=== PATIENT | male | born 1970 | race African-American/Black ===

== ENCOUNTER 2016-12-28 08:16 | Inpatient (IN) | payer OTHER ==
[2016-12-28 10:37] VITALS: BMI 35.4
--- NOTE | 2016-12-28 13:27 | HP ---
CIWA Score - CIWA Score Nausea/Vomitin-No Nausea/No Vomiting Muscle Tremors: 4-Moderate,w/Arms Extend Anxiety: 3 Agitation: 3 Paroxysmal Sweats: 3 Orientation: 0-Oriented Tacttile Disturbances: 0-None Auditory Disturbances: 0-None Visual Disturbances: 0-None Headache: 0-None Present CIWA-Ar Total Score: 13 Admission ROS BHS - HPI Chief Complaint: I am here to detox. Allergies/Adverse Reactions: Allergies Allergy/AdvReac Type Severity Reaction Status Date / Time No Known Allergies Allergy Verified 12/28/16 11:05 History of Present Illness: pt is a 46yr old male with a history of alcohol and cocaine dependence seeking detox for treatment. Exam Limitations: No Limitations - Ebola screening Have you traveled outside of the country in the last 21 days: No Have you had contact with anyone from an Ebola affected area: No Have you been sick,other than usual withdrawal symptoms: No Do you have a fever: No - Review of Systems Constitutional: No Symptoms Reported EENT: reports: No Symptoms Reported Respiratory: reports: No Symptoms reported Cardiac: reports: No Symptoms Reported GI: reports: No Symptoms Reported : reports: No Symptoms Reported Musculoskeletal: reports: No Symptoms Reported Integumentary: reports: Sweating Neuro: reports: Tingling, Tremors Endocrine: reports: Excessive Sweating, Flushing, Intolerance to Heat Hematology: reports: No Symptoms Reported Psychiatric: reports: No Sypmtoms Reported, Judgement Intact, Mood/Affect Appropiate, Orientated x3, Agitated, Anxious Other Systems: Reviewed and Negative Patient History - Patient Medical History Hx Anemia: No Hx Asthma: No Hx Chronic Obstructive Pulmonary Disease (COPD): No Hx Cancer: No Hx Cardiac Disorders: No Hx Congestive Heart Failure: No Hx Hypertension: No Hx Hypercholesterolemia: No Hx Pacemaker: No HX Cerebrovascular Accident: No Hx Seizures: No Hx Diabetes: No Hx Gastrointestinal Disorders: No Hx Liver Disease: No Hx Genitourinary Disorders: No Hx Sexually Transmitted Disorders: Yes (syphilis) Hx Renal Disease (ESRD): No Hx Thyroid Disease: No Hx Human Immunodeficiency Virus (HIV): No (NEGATIVE HX) Hx Hepatitis C: No (negative) Hx Depression: No Hx Suicide Attempt: No (denies) Hx Bipolar Disorder: No Hx Schizophrenia: No - Patient Surgical History Past Surgical History: No Hx Neurologic Surgery: No Hx Cataract Extraction: No Hx Cardiac Surgery: No Hx Lung Surgery: No Hx Breast Surgery: No Hx Breast Biopsy: No Hx Abdominal Surgery: No Hx Appendectomy: No Hx Cholecystectomy: No Hx Genitourinary Surgery: No Hx Section: No Other Surgical History: RT ACHILLES REPAIR-IN 1994 Anesthesia Reaction: No - PPD History Previous Implant?: Yes Documented Results: Positive w/o proof Results: CXR TBD PPD to be Administered?: No - Reproductive History Patient is a Female of Child Bearing Age (11 -55 yrs old): No - Smoking Cessation Smoking history: Current every day smoker Have you smoked in the past 12 months: Yes Aproximately how many cigarettes per day: 10 Hx Chewing Tobacco Use: No Initiated information on smoking cessation: Yes 'Breaking Loose' booklet given: 12/28/16 - Substance & Tx. History Hx Alcohol Use: Yes Hx Substance Use: Yes Substance Use Type: Alcohol, Cocaine Hx Substance Use Treatment: Yes (last detox [facility] 3 weeks ago. ) - Substances Abused Crack Route: Smoking Frequency: Daily Amount used: $200 Age of first use: 24 Date of Last Use: 12/27/16 Alcohol-beer/vodka Route: Oral Frequency: Daily Amount used: 2-6 pks./1 pt. Age of first use: 20 Date of Last Use: 12/28/16 Family Disease History - Family Disease History Family Disease History: Diabetes: Father, Mother (HTN), Other: Mother Admission Physical Exam BHS - Vital Signs Vital Signs: Vital Signs - 24 hr 12/28/16 10:33 Temperature 96.9 F L Pulse Rate 90 Respiratory 18 Rate Blood Pressure 126/78 - Physical General Appearance: Yes: Appropriately Dressed, Moderate Distress, Sweating, Anxious HEENTM: Yes: Normal Voice Respiratory: Yes: Lungs Clear, Normal Breath Sounds, No Respiratory Distress Neck: Yes: No masses,lesions,Nodules Breast: Yes: Within Normal Limits Cardiology: Yes: Regular Rhythm, Regular Rate, S1, S2 Genitourinary: Yes: Within Normal Limits Back: Yes: Normal Inspection Musculoskeletal: Yes: full range of Motion Extremities: Yes: Normal Capillary Refill Neurological: Yes: Fully Oriented, Alert, Normal Response Integumentary: Yes: Normal Color, Diaphoresis Lymphatic: Yes: Within Normal Limits - Diagnostic (1) Alcohol dependence with uncomplicated withdrawal Current Visit: Yes Status: Chronic (2) Cocaine dependence, uncomplicated Current Visit: Yes Status: Chronic (3) Nicotine dependence Current Visit: Yes Status: Chronic Qualifiers: Nicotine product type: cigarettes Substance use status: uncomplicated Qualified Code(s): F17.210 - Nicotine dependence, cigarettes, uncomplicated Cleared for Admission [facility] - Detox or Rehab [facility] Level of Care: Medically Managed Detox Regimen/Protocol: Librium BHS Breath Alcohol Content Breath Alcohol Content: 0 Urine Drug Screen - Results Drug Screen Negative: No Urine Drug Screen Results: THC-Marijuana, SOM-Cocaine
[2016-12-28] MEDS ORDERED: ACETAMINOPHEN 325 MG TABLET (FP) PO PRN (13:29)
[2016-12-28] MEDS ORDERED: MAG HYDROX/AL HYDROX/SIMETH 30 ML UNIT-DOSE CUP PO PRN (13:29)
[2016-12-28] MEDS ORDERED: diphenhydrAMINE HCL 50 MG CAPSULE PO PRN (13:29)
[2016-12-28] MEDS ORDERED: hydrOXYzine PAMOATE 50 MG CAPSULE (FP) PO PRN (13:29)
[2016-12-28] MEDS ORDERED: IBUPROFEN 400 MG TABLET (FP) PO PRN (13:29)
[2016-12-28] MEDS ORDERED: P-EPHED 60MG/TRIPROLIDI 2.5MG TABLET PO PRN (13:29)
[2016-12-28] MEDS ORDERED: guaiFENesin/D-METHORPHAN HB 10 ML UNIT-DOSE CUPS PO PRN (13:29)
[2016-12-28] MEDS ORDERED: MAGNESIUM HYDROX 2400MG/30ML ORAL SUSPENSION 30 ML CUP PO PRN (13:29)
[2016-12-28] MEDS ORDERED: MAGNESIUM CITRATE 300 ML BOTTLE PO PRN (13:29)
[2016-12-28] MEDS ORDERED: LOPERAMIDE HCL 2 MG CAPSULE PO PRN (13:29)
[2016-12-28] MEDS ORDERED: MENTHOL/PHENOL 1 EACH UD MM PRN (13:29)
[2016-12-28] MEDS ORDERED: chlordiazePOXIDE HCL 25 MG CAPSULE PO ONE (14:00)
[2016-12-28 14:48] LABS: HIV 1 & 2 AB NEGATIVE; HIV 1 AGp24 NEGATIVE
[2016-12-28 17:41] LABS: URINE APPEARANCE CLEAR; URINE BILIRUBIN NEGATIVE (NEGATIVE); URINE BLOOD NEGATIVE (NEGATIVE); URINE COLOR AMBER; URINE GLUCOSE (UA) 1+ (NEGATIVE); URINE KETONE NEGATIVE (NEGATIVE); URINE LEUK ESTERASE NEGATIVE (NEGATIVE); URINE NITRITE NEGATIVE (NEGATIVE); URINE UROBILINOGEN 4.0 E.U/dl E.U./dl (0.2-1.0)
[2016-12-28 17:42] LABS: URINE PROTEIN 2+ (NEGATIVE)
[2016-12-28 17:53] LABS: URINE HYALINE CAST 1 /lpf; URINE MUCUS MANY; URINE RBC 1 /hpf (0-3); URINE WBC 3 /hpf (3-5)
[2016-12-28] MEDS: chlordiazePOXIDE HCL 25 MG CAPSULE PO SCH ×2 (18:22→22:03)
[2016-12-28] MEDS: chlordiazePOXIDE HCL 25 MG CAPSULE PO PRN (20:14)
[2016-12-28] MEDS: THIAMINE HCL 100 MG TABLET (FP) PO SCH (22:03)
[2016-12-29] MEDS: chlordiazePOXIDE HCL 25 MG CAPSULE PO SCH ×4 (05:56→22:47)
[2016-12-29 09:50] LABS: MCH 30.3 pg (25.7-33.7); MCHC 33.5 g/dl (32.0-35.9); MEAN CELL VOLUME 90.6 fl (80-96); MEAN PLT VOLUME 8.7 fl (7.5-11.1); PLATELET COUNT 286 K/MM3 (134-434); RDW 14.3 % (11.9-15.9); WHITE BLOOD COUNT 6.8 K/mm3 (4.0-10.0)
[2016-12-29] MEDS: PRENATAL VITAMINS W/ FOLIC ACID TABLET (FP) PO SCH (10:23)
[2016-12-29] MEDS: NICOTINE 21 MG/24 HOURS TOPICAL PATCH TD SCH (10:23)
[2016-12-29] MEDS: NICOTINE POLACRILEX 4 MG GUM BC PRN (10:24)
--- NOTE | 2016-12-29 11:26 | PN ---
[facility] CIWA - CIWA Score Nausea/Vomitin-No Nausea/No Vomiting Muscle Tremors: 4-Moderate,w/Arms Extend Anxiety: 4-Mod. Anxious/Guarded Agitation: 4-Moderately Restless Paroxysmal Sweats: 1-Minimal Palms Moist Orientation: 0-Oriented Tacttile Disturbances: 3-Moderate Itch/Numb/Burn Auditory Disturbances: 0-None Visual Disturbances: 0-None Headache: 0-None Present CIWA-Ar Total Score: 16 BHS Progress Note (SOAP) Subjective: ANXIETY,SWEATS,FATIGUE. Objective: 12/29/16 11:25 Vital Signs Temperature 97.0 F L 12/29/16 09:05 Pulse Rate 72 12/29/16 09:05 Respiratory Rate 18 12/29/16 09:05 Blood Pressure 131/82 12/29/16 09:05 O2 Sat by Pulse Oximetry (%) Laboratory Last Values WBC 6.8 K/mm3 (4.0-10.0) 12/29/16 06:00 RBC 5.05 M/mm3 (4.00-5.60) 12/29/16 06:00 Hgb 15.3 GM/dL (11.7-16.9) 12/29/16 06:00 Hct 45.7 % (35.4-49) 12/29/16 06:00 MCV 90.6 fl (80-96) 12/29/16 06:00 MCHC 33.5 g/dl (32.0-35.9) 12/29/16 06:00 RDW 14.3 % (11.9-15.9) 12/29/16 06:00 Plt Count 286 K/MM3 (134-434) 12/29/16 06:00 MPV 8.7 fl (7.5-11.1) 12/29/16 06:00 Urine Color Carrie 12/28/16 14:00 Urine Appearance Clear 12/28/16 14:00 Urine pH 5.0 (5.0-8.0) 12/28/16 14:00 Ur Specific [place] >= 1.030 (1.005-1.025) H 12/28/16 14:00 Urine Protein 2+ (NEGATIVE) H 12/28/16 14:00 Urine Glucose (UA) 1+ (NEGATIVE) H 12/28/16 14:00 Urine Ketones Negative (NEGATIVE) 12/28/16 14:00 Urine Blood Negative (NEGATIVE) 12/28/16 14:00 Urine Nitrite Negative (NEGATIVE) 12/28/16 14:00 Urine Bilirubin Negative (NEGATIVE) 12/28/16 14:00 Urine Urobilinogen 4.0 e.u/dl E.U./dl (0.2-1.0) 12/28/16 14:00 Ur Leukocyte Esterase Negative (NEGATIVE) 12/28/16 14:00 Urine RBC 1 /hpf (0-3) 12/28/16 14:00 Urine WBC 3 /hpf (3-5) 12/28/16 14:00 Ur Epithelial Cells Rare /hpf (FEW) 12/28/16 14:00 Hyaline Casts 1 /lpf 12/28/16 14:00 Urine Mucus Many 12/28/16 14:00 HIV 1&2 Antibody Screen Negative 12/28/16 11:10 HIV P24 Antigen Negative 12/28/16 11:10 Assessment: 12/29/16 11:25 WITHDRAWAL SX Plan: CONTINUE DETOX
--- NOTE | 2016-12-29 12:42 | EKG ---
Test Reason : Blood Pressure : / mmHG Vent. Rate : 085 BPM Atrial Rate : 085 BPM P-R Int : 136 ms QRS Dur : 068 ms QT Int : 346 ms P-R-T Axes : 043 024 018 degrees QTc Int : 411 ms NORMAL SINUS RHYTHM NORMAL ECG NO PREVIOUS ECGS AVAILABLE Confirmed by ARIAN LOPEZ MD ([id number]) on 12/29/2016 12:42:00 PM Referred By: Confirmed By:ARIAN LOPEZ MD
[2016-12-29 13:13] LABS: ALBUMIN 3.9 g/dl (3.4-5.0); ALK PHOS 99 U/L (45-117); ANION GAP 13 (8-16); BILIRUBIN,TOTAL 0.9 mg/dL (0.2-1.0); CALCIUM 8.8 mg/dL (8.5-10.1); CO2 23 mmol/L (21-32); CREATININE 1.3 mg/dL (0.7-1.3); GLUCOSE,RANDOM 183 mg/dL (74-106); SGOT/AST 22 U/L (15-37); SGPT/ALT 35 U/L (12-78); TOT PROT 7.5 g/dl (6.4-8.2)
[2016-12-29] MEDS: THIAMINE HCL 100 MG TABLET (FP) PO SCH (22:48)
[2016-12-30] MEDS: chlordiazePOXIDE HCL 25 MG CAPSULE PO SCH ×2 (06:05→10:16)
[2016-12-30] MEDS: PRENATAL VITAMINS W/ FOLIC ACID TABLET (FP) PO SCH (10:16)
[2016-12-30] MEDS: NICOTINE 21 MG/24 HOURS TOPICAL PATCH TD SCH (10:16)
--- NOTE | 2016-12-30 10:17 | PN ---
[facility] CIWA - CIWA Score Nausea/Vomitin-No Nausea/No Vomiting Muscle Tremors: 4-Moderate,w/Arms Extend Anxiety: 4-Mod. Anxious/Guarded Agitation: 4-Moderately Restless Paroxysmal Sweats: 1-Minimal Palms Moist Orientation: 0-Oriented Tacttile Disturbances: 3-Moderate Itch/Numb/Burn Auditory Disturbances: 0-None Visual Disturbances: 0-None Headache: 0-None Present CIWA-Ar Total Score: 16 S Progress Note (SOAP) Subjective: ANXIETY,SWEATS,INTERMITTENT SLEEP Objective: 12/30/16 10:16 Vital Signs Temperature 96.7 F L 12/30/16 09:47 Pulse Rate 80 12/30/16 09:47 Respiratory Rate 18 12/30/16 09:47 Blood Pressure 137/86 12/30/16 09:47 O2 Sat by Pulse Oximetry (%) Laboratory Last Values WBC 6.8 K/mm3 (4.0-10.0) 12/29/16 06:00 RBC 5.05 M/mm3 (4.00-5.60) 12/29/16 06:00 Hgb 15.3 GM/dL (11.7-16.9) 12/29/16 06:00 Hct 45.7 % (35.4-49) 12/29/16 06:00 MCV 90.6 fl (80-96) 12/29/16 06:00 MCHC 33.5 g/dl (32.0-35.9) 12/29/16 06:00 RDW 14.3 % (11.9-15.9) 12/29/16 06:00 Plt Count 286 K/MM3 (134-434) 12/29/16 06:00 MPV 8.7 fl (7.5-11.1) 12/29/16 06:00 Sodium 139 mmol/L (136-145) 12/29/16 06:00 Potassium 4.0 mmol/L (3.5-5.1) 12/29/16 06:00 Chloride 103 mmol/L (98-107) 12/29/16 06:00 Carbon Dioxide 23 mmol/L (21-32) 12/29/16 06:00 Anion Gap 13 (8-16) 12/29/16 06:00 BUN 24 mg/dL (7-18) H D 12/29/16 06:00 Creatinine 1.3 mg/dL (0.7-1.3) 12/29/16 06:00 Creat Clearance w eGFR 59.17 (>60) 12/29/16 06:00 Random Glucose 183 mg/dL (74-106) H D 12/29/16 06:00 Calcium 8.8 mg/dL (8.5-10.1) 12/29/16 06:00 Total Bilirubin 0.9 mg/dL (0.2-1.0) 12/29/16 06:00 AST 22 U/L (15-37) 12/29/16 06:00 ALT 35 U/L (12-78) 12/29/16 06:00 Alkaline Phosphatase 99 U/L (45-117) 12/29/16 06:00 Total Protein 7.5 g/dl (6.4-8.2) 12/29/16 06:00 Albumin 3.9 g/dl (3.4-5.0) 12/29/16 06:00 Urine Color Carrie 12/28/16 14:00 Urine Appearance Clear 12/28/16 14:00 Urine pH 5.0 (5.0-8.0) 12/28/16 14:00 Ur Specific [place] >= 1.030 (1.005-1.025) H 12/28/16 14:00 Urine Protein 2+ (NEGATIVE) H 12/28/16 14:00 Urine Glucose (UA) 1+ (NEGATIVE) H 12/28/16 14:00 Urine Ketones Negative (NEGATIVE) 12/28/16 14:00 Urine Blood Negative (NEGATIVE) 12/28/16 14:00 Urine Nitrite Negative (NEGATIVE) 12/28/16 14:00 Urine Bilirubin Negative (NEGATIVE) 12/28/16 14:00 Urine Urobilinogen 4.0 e.u/dl E.U./dl (0.2-1.0) 12/28/16 14:00 Ur Leukocyte Esterase Negative (NEGATIVE) 12/28/16 14:00 Urine RBC 1 /hpf (0-3) 12/28/16 14:00 Urine WBC 3 /hpf (3-5) 12/28/16 14:00 Ur Epithelial Cells Rare /hpf (FEW) 12/28/16 14:00 Hyaline Casts 1 /lpf 12/28/16 14:00 Urine Mucus Many 12/28/16 14:00 RPR Titer Nonreactive (NONREACTIVE) 12/29/16 06:00 HIV 1&2 Antibody Screen Negative 12/28/16 11:10 HIV P24 Antigen Negative 12/28/16 11:10 Assessment: 12/30/16 10:16 WITHDRAWAL SX Plan: CONTINUE DETOX
[2016-12-30] MEDS: chlordiazePOXIDE HCL 25 MG CAPSULE PO PRN (15:25)
[2016-12-30] MEDS: chlordiazePOXIDE 5 MG CAPSULE PO SCH ×2 (17:03→22:50)
[2016-12-30] MEDS: THIAMINE HCL 100 MG TABLET (FP) PO SCH (22:50)
[2016-12-31] MEDS: chlordiazePOXIDE 5 MG CAPSULE PO SCH ×2 (06:00→10:03)
[2016-12-31] MEDS: PRENATAL VITAMINS W/ FOLIC ACID TABLET (FP) PO SCH (10:02)
[2016-12-31] MEDS: NICOTINE 21 MG/24 HOURS TOPICAL PATCH TD SCH (10:03)
[2016-12-31] MEDS: NICOTINE POLACRILEX 4 MG GUM BC PRN (10:04)
[2016-12-31] MEDS: chlordiazePOXIDE HCL 10 MG CAPSULE PO SCH ×2 (17:12→22:08)
--- NOTE | 2016-12-31 18:04 | PN ---
BHS Progress Note (SOAP) Subjective: Tremors, Sweating. Objective: PT. A & O X 3. NO ACUTE DISTRESS. 12/31/16 18:02 Vital Signs Temperature 98.2 F 12/31/16 17:14 Pulse Rate 83 12/31/16 17:14 Respiratory Rate 18 12/31/16 17:14 Blood Pressure 118/74 12/31/16 17:14 O2 Sat by Pulse Oximetry (%) Laboratory Tests 12/28/16 12/28/16 12/29/16 11:10 14:00 06:00 WBC 6.8 RBC 5.05 Hgb 15.3 Hct 45.7 MCV 90.6 MCHC 33.5 RDW 14.3 Plt Count 286 MPV 8.7 Sodium Potassium Chloride Carbon Dioxide Anion Gap BUN Creatinine Creat Clearance w eGFR Random Glucose Calcium Total Bilirubin AST ALT Alkaline Phosphatase Total Protein Albumin Urine Color Carrie Urine Appearance Clear Urine pH 5.0 Ur Specific [place] >= 1.030 H Urine Protein 2+ H Urine Glucose (UA) 1+ H Urine Ketones Negative Urine Blood Negative Urine Nitrite Negative Urine Bilirubin Negative Urine Urobilinogen 4.0 e.u/dl Ur Leukocyte Esterase Negative Urine RBC 1 Urine WBC 3 Ur Epithelial Cells Rare Hyaline Casts 1 Urine Mucus Many RPR Titer HIV 1&2 Antibody Screen Negative HIV P24 Antigen Negative 12/29/16 12/29/16 06:00 06:00 WBC RBC Hgb Hct MCV MCHC RDW Plt Count MPV Sodium 139 Potassium 4.0 Chloride 103 Carbon Dioxide 23 Anion Gap 13 BUN 24 H D Creatinine 1.3 Creat Clearance w eGFR 59.17 Random Glucose 183 H D Calcium 8.8 Total Bilirubin 0.9 AST 22 ALT 35 Alkaline Phosphatase 99 Total Protein 7.5 Albumin 3.9 Urine Color Urine Appearance Urine pH Ur Specific [place] Urine Protein Urine Glucose (UA) Urine Ketones Urine Blood Urine Nitrite Urine Bilirubin Urine Urobilinogen Ur Leukocyte Esterase Urine RBC Urine WBC Ur Epithelial Cells Hyaline Casts Urine Mucus RPR Titer Nonreactive HIV 1&2 Antibody Screen HIV P24 Antigen LABS NOTED. Assessment: 12/31/16 18:03 WITHDRAWAL SYMPTOMS. Plan: CONTINUE DETOX. ADVISED PATIENT TO FOLLOW-UP WITH FLIGHT OPERATIONS MANAGER AFTER DISCHARGE FROM DETOX FOR GENERAL MEDICAL ASSESSMENT AND FOR ABNORMAL ADMISSION RENAL LAB (BUN, CREATININE, AND GFR) VALUES AND FOR ELEVATED ADMISSION RANDOM GLUCOSE LEVEL.
[2016-12-31] MEDS: THIAMINE HCL 100 MG TABLET (FP) PO SCH (22:07)
[2017-01-01] MEDS: chlordiazePOXIDE HCL 10 MG CAPSULE PO SCH (05:49)
[2017-01-01 06:28] VITALS: BP 120/85; PULSE 74; TEMP 98.1
--- NOTE | 2017-01-01 11:43 | DS ---
[facility] Detox Discharge Summary Admission Date: 12/28/16 Discharge Date: 01/01/17 - History Present History: Alcohol Dependence, Cocaine Dependence Pertinent Past History: Positive PPD Prerenal azotemia, acute: encouraged to drink lots of water Laboratory Tests 12/28/16 12/28/16 12/29/16 11:10 14:00 06:00 WBC 6.8 RBC 5.05 Hgb 15.3 Hct 45.7 MCV 90.6 MCHC 33.5 RDW 14.3 Plt Count 286 MPV 8.7 Sodium Potassium Chloride Carbon Dioxide Anion Gap BUN Creatinine Creat Clearance w eGFR Random Glucose Calcium Total Bilirubin AST ALT Alkaline Phosphatase Total Protein Albumin Urine Color Carrie Urine Appearance Clear Urine pH 5.0 Ur Specific [place] >= 1.030 H Urine Protein 2+ H Urine Glucose (UA) 1+ H Urine Ketones Negative Urine Blood Negative Urine Nitrite Negative Urine Bilirubin Negative Urine Urobilinogen 4.0 e.u/dl Ur Leukocyte Esterase Negative Urine RBC 1 Urine WBC 3 Ur Epithelial Cells Rare Hyaline Casts 1 Urine Mucus Many RPR Titer HIV 1&2 Antibody Screen Negative HIV P24 Antigen Negative 12/29/16 12/29/16 06:00 06:00 WBC RBC Hgb Hct MCV MCHC RDW Plt Count MPV Sodium 139 Potassium 4.0 Chloride 103 Carbon Dioxide 23 Anion Gap 13 BUN 24 H D Creatinine 1.3 Creat Clearance w eGFR 59.17 Random Glucose 183 H D Calcium 8.8 Total Bilirubin 0.9 AST 22 ALT 35 Alkaline Phosphatase 99 Total Protein 7.5 Albumin 3.9 Urine Color Urine Appearance Urine pH Ur Specific [place] Urine Protein Urine Glucose (UA) Urine Ketones Urine Blood Urine Nitrite Urine Bilirubin Urine Urobilinogen Ur Leukocyte Esterase Urine RBC Urine WBC Ur Epithelial Cells Hyaline Casts Urine Mucus RPR Titer Nonreactive HIV 1&2 Antibody Screen HIV P24 Antigen Labs noted: prerenal azotemia (encouraged to drink lots of water) - Physical Exam Results Vital Signs: Vital Signs Temperature 98.1 F 01/01/17 06:28 Pulse Rate 74 01/01/17 06:28 Respiratory Rate 18 01/01/17 06:28 Blood Pressure 120/85 01/01/17 06:28 O2 Sat by Pulse Oximetry (%) - Treatment Hospital Course: Detox Protocol Followed, Detoxed Safely, Responded well, Discharged Condition Good - Medication Discharge Medications: Ambulatory Orders NK [No Known Home Medication] 01/27/16 - Diagnosis (1) Alcohol dependence with uncomplicated withdrawal Status: Acute (2) Cocaine dependence, uncomplicated Status: Chronic (3) Nicotine dependence Status: Chronic Qualifiers: Nicotine product type: cigarettes Substance use status: uncomplicated Qualified Code(s): F17.210 - Nicotine dependence, cigarettes, uncomplicated (4) PPD positive Status: Chronic - AMA Did Patient Leave Against Medical Advice: No
== END 2017-01-01 08:38 | disposition home or self-care (01) | DRG 774 ==
LOC: YASAS 08:16 → Y3N 12:15
PROVIDERS: ADMIT Internal Medicine; ATTEND Internal Medicine
PROC: HZ2ZZZZ Detoxification Services for Substance Abuse Treatment (ICD-10-PCS; principal; 2016-12-28)
DX: F10.230 Alcohol dependence with withdrawal, uncomplicated (principal); F14.20 Cocaine dependence, uncomplicated; F17.210 Nicotine dependence, cigarettes, uncomplicated; R76.11 Nonspecific reaction to tuberculin skin test without active tuberculosis; Z87.438 Personal history of other diseases of male genital organs; Z59.0 Homelessness
CPT/HCPCS: 36415; 80053; 81003; 81015; 85027; 86593; 87389; 93005; 93010

== ENCOUNTER 2017-07-21 12:39 | Inpatient (IN) | payer OTHER ==
[2017-07-21 14:19] VITALS: BMI 35.1
--- NOTE | 2017-07-21 14:41 | HP ---
Admission [facility] Chief Complaint: requesting inpatient rehab from alcohol and cocaine Allergies/Adverse Reactions: Allergies Allergy/AdvReac Type Severity Reaction Status Date / Time No Known Allergies Allergy Verified 07/21/17 14:29 History of Present Illness: 46 yo m with h/o chornic alcoholism and cocaine dependence detoxed in retirement, has not had a a drink, last drink or cocaine use in January siince release 2 dasy ago requesting inaptient rehab. no h.o suicide attempts in [place] at this time Exam Limitations: No Limitations - Ebola screening Have you traveled outside of the country in the last 21 days: No Have you had contact with anyone from an Ebola affected area: No Have you been sick,other than usual withdrawal symptoms: No Do you have a fever: No - Review of Systems Constitutional: No Symptoms Reported EENT: reports: No Symptoms Reported Respiratory: reports: No Symptoms reported Cardiac: reports: No Symptoms Reported GI: reports: No Symptoms Reported : reports: No Symptoms Reported Musculoskeletal: reports: No Symptoms Reported Integumentary: reports: Rash (back of neck, requesting hyydrocortisone) Neuro: reports: No Symptoms reported Endocrine: reports: No Symptoms Reported Hematology: reports: No Symptoms Reported Psychiatric: reports: Judgement Intact, Mood/Affect Appropiate, Orientated x3, Anxious, Depressed Other Systems: Reviewed and Negative Patient History - Patient Medical History Hx Anemia: No Hx Asthma: No Hx Chronic Obstructive Pulmonary Disease (COPD): No Hx Cancer: No Hx Cardiac Disorders: No Hx Congestive Heart Failure: No Hx Hypertension: No Hx Hypercholesterolemia: No Hx Pacemaker: No HX Cerebrovascular Accident: No Hx Seizures: No Hx Dementia: No Hx Diabetes: No Hx Gastrointestinal Disorders: No Hx Liver Disease: No Hx Genitourinary Disorders: No Hx Sexually Transmitted Disorders: Yes (syphilis treated) Hx Renal Disease (ESRD): No Hx Thyroid Disease: No Hx Human Immunodeficiency Virus (HIV): No (NEGATIVE HX) Hx Hepatitis C: No (negative) Hx Depression: No Hx Suicide Attempt: No (denies) Hx Bipolar Disorder: No Hx Schizophrenia: No - Patient Surgical History Past Surgical History: No Hx Neurologic Surgery: No Hx Cataract Extraction: No Hx Cardiac Surgery: No Hx Lung Surgery: No Hx Breast Surgery: No Hx Breast Biopsy: No Hx Abdominal Surgery: No Hx Appendectomy: No Hx Cholecystectomy: No Hx Genitourinary Surgery: No Hx Section: No Other Surgical History: RT ACHILLES REPAIR-IN 1994 Anesthesia Reaction: No - PPD History Previous Implant?: Yes Documented Results: Positive w/proof Implanted On Prior [facility] Admission?: Yes Results: CXR TBD PPD to be Administered?: No - Reproductive History Patient is a Female of Child Bearing Age (11 -55 yrs old): No Patient : No - Smoking Cessation Smoking history: Current every day smoker Have you smoked in the past 12 months: Yes Aproximately how many cigarettes per day: 10 Hx Chewing Tobacco Use: No Initiated information on smoking cessation: No 'Breaking Loose' booklet given: 07/21/17 - Substance & Tx. History Hx Alcohol Use: Yes Hx Substance Use: Yes Substance Use Type: Alcohol, Cocaine Hx Substance Use Treatment: Yes (detoxed while incarceratted, no recent use) - Substances Abused Alcohol Route: Oral Frequency: Daily Amount used: 12 beers 12oz, 1 pint vodka Age of first use: 20 Date of Last Use: 02/13/17 Crack Route: Inhalation Frequency: Daily Amount used: $300/week Age of first use: 23 Date of Last Use: 02/13/17 Family Disease History - Family Disease History Family Disease History: Diabetes: Father, Mother (HTN), Other: Mother Admission Physical Exam [facility] - Vital Signs Vital Signs: Vital Signs - 24 hr 07/21/17 14:16 Temperature 98.1 F Pulse Rate 102 H Respiratory 20 Rate Blood Pressure 151/89 - Physical General Appearance: Yes: Within Normal Limits, No Apparent Distress, Nourished, Appropriately Dressed, Obese HEENTM: Yes: Within Normal Limits, EOMI, Hearing grossly Normal, Normal ENT Inspection, Normocephalic, Normal Voice, MAGNO, Pharynx Normal Respiratory: Yes: Within Normal Limits, Chest Non-Tender, Lungs Clear, Normal Breath Sounds, No Respiratory Distress, No Accessory Muscle Use Neck: Yes: Within Normal Limits, No masses,lesions,Nodules, Trachea in good position Breast: Yes: Breast Exam Deferred Cardiology: Yes: Within Normal Limits, Regular Rhythm, Regular Rate, S1, S2 Abdominal: Yes: Normal Bowel Sounds, Non Tender, Soft, Protuberent, Distended Genitourinary: Yes: Within Normal Limits Back: Yes: Within Normal Limits, Normal Inspection Musculoskeletal: Yes: Within Normal Limits, full range of Motion, Gait Steady, Pelvis Stable Extremities: Yes: Within Normal Limits, Normal Capillary Refill, Normal Inspection, Normal Range of Motion, Non-Tender Neurological: Yes: health nurse II-XII NML intact, Fully Oriented, Alert, Motor Strength 5/5, Normal Response, Depressed Affect Integumentary: Yes: Normal Color, Dry, Warm, Rash (back of neck from shaving) Lymphatic: Yes: Within Normal Limits - Diagnostic (1) Obesity Current Visit: Yes Status: Acute (2) Rash Current Visit: Yes Status: Acute (3) Alcohol dependence with uncomplicated withdrawal Current Visit: No Status: Acute (4) Cocaine dependence, uncomplicated Current Visit: No Status: Chronic (5) Nicotine dependence Current Visit: No Status: Chronic Qualifiers: Nicotine product type: cigarettes Substance use status: uncomplicated Qualified Code(s): F17.210 - Nicotine dependence, cigarettes, uncomplicated (6) PPD positive Current Visit: No Status: Chronic Cleared for Admission S - Detox or Rehab Detox Regimen/Protocol: Not Applicable S Breath Alcohol Content Breath Alcohol Content: 0 Urine Drug Screen - Results Drug Screen Negative: Yes Inpatient Rehab Admission - Initial Determination Are CD services needed?: Yes Free of communicable disease: Yes Not in need of hospitalization: Yes - Rehab Admission Criteria Previous failed treatment: Yes Patient is meeting Inpatient Rehab admission criteria:: Yes
[2017-07-21] MEDS ORDERED: guaiFENesin/D-METHORPHAN HB 10 ML UNIT-DOSE CUPS PO PRN (14:43)
[2017-07-21] MEDS ORDERED: ACETAMINOPHEN 325 MG TABLET (FP) PO PRN (14:43)
[2017-07-21] MEDS ORDERED: MAG HYDROX/AL HYDROX/SIMETH 30 ML UNIT-DOSE CUP PO PRN (14:43)
[2017-07-21] MEDS ORDERED: MAGNESIUM HYDROX 2400MG/30ML ORAL SUSPENSION 30 ML CUP PO PRN (14:43)
[2017-07-21] MEDS ORDERED: P-EPHED 60MG/TRIPROLIDI 2.5MG TABLET PO PRN (14:43)
[2017-07-21] MEDS ORDERED: MAGNESIUM CITRATE 300 ML BOTTLE PO PRN (14:43)
[2017-07-21] MEDS ORDERED: MENTHOL/PHENOL 1 EACH UD MM PRN (14:43)
[2017-07-21] MEDS ORDERED: LOPERAMIDE HCL 2 MG CAPSULE PO PRN (14:43)
[2017-07-21] MEDS ORDERED: IBUPROFEN 400 MG TABLET (FP) PO PRN (14:43)
[2017-07-21] MEDS ORDERED: hydrOXYzine PAMOATE 50 MG CAPSULE (FP) PO PRN (14:43)
[2017-07-21 20:58] LABS: URINE APPEARANCE CLEAR; URINE BILIRUBIN NEGATIVE (NEGATIVE); URINE BLOOD NEGATIVE (NEGATIVE); URINE COLOR YELLOW; URINE GLUCOSE (UA) 3+ (NEGATIVE); URINE KETONE NEGATIVE (NEGATIVE); URINE LEUK ESTERASE NEGATIVE (NEGATIVE); URINE NITRITE NEGATIVE (NEGATIVE); URINE PROTEIN NEGATIVE (NEGATIVE); URINE UROBILINOGEN NEGATIVE mg/dL (0.2-1.0)
[2017-07-21] MEDS: THIAMINE HCL 100 MG TABLET (FP) PO SCH (21:37)
[2017-07-22] MEDS: PRENATAL VITAMINS W/ FOLIC ACID TABLET (FP) PO SCH (10:19)
[2017-07-22] MEDS: HYDROCORTISONE 0.5% TOPICAL OINTMENT TUBE TP PRN (10:19)
[2017-07-22 11:07] LABS: ALBUMIN 3.9 g/dl (3.4-5.0); ANION GAP 10 (8-16); BILIRUBIN,TOTAL 0.4 mg/dL (0.2-1.0); BLOOD UREA NITROGEN 14 mg/dL (7-18); CALCIUM 9.2 mg/dL (8.5-10.1); CHLORIDE 102 mmol/L (98-107); CO2 24 mmol/L (21-32); GLUCOSE,RANDOM 295 mg/dL (74-106); POTASSIUM 4.6 mmol/L (3.5-5.1); SGPT/ALT 34 U/L (12-78); SODIUM 136 mmol/L (136-145)
[2017-07-22 11:08] LABS: HEMATOCRIT 44.7 % (35.4-49); MCH 29.2 pg (25.7-33.7); MCHC 33.5 g/dl (32.0-35.9); MEAN CELL VOLUME 86.9 fl (80-96); MEAN PLT VOLUME 8.5 fl (7.5-11.1); PLATELET COUNT 235 K/MM3 (134-434); RBC 5.14 M/mm3 (4.00-5.60); RDW 13.6 % (11.9-15.9); WHITE BLOOD COUNT 5.6 K/mm3 (4.0-10.0)
[2017-07-22 11:09] LABS: ALK PHOS 107 U/L (45-117); SGOT/AST 18 U/L (15-37); TOT PROT 7.3 g/dl (6.4-8.2)
--- NOTE | 2017-07-22 13:38 | EKG ---
Test Reason : Blood Pressure : / mmHG Vent. Rate : 075 BPM Atrial Rate : 075 BPM P-R Int : 152 ms QRS Dur : 078 ms QT Int : 348 ms P-R-T Axes : 039 013 -02 degrees QTc Int : 388 ms NORMAL SINUS RHYTHM MINIMAL VOLTAGE CRITERIA FOR LVH, MAY BE NORMAL VARIANT NONSPECIFIC ST ABNORMALITY ABNORMAL ECG WHEN COMPARED WITH ECG OF 28-DEC-2016 13:48, NO SIGNIFICANT CHANGE WAS FOUND Confirmed by LING RUEDA MD ([id number]) on 07/22/2017 1:37:39 PM Referred By: Confirmed By:LING RUEDA MD
[2017-07-22] MEDS: THIAMINE HCL 100 MG TABLET (FP) PO SCH (22:11)
[2017-07-23] MEDS: PRENATAL VITAMINS W/ FOLIC ACID TABLET (FP) PO SCH (09:58)
[2017-07-23] MEDS: THIAMINE HCL 100 MG TABLET (FP) PO SCH (21:31)
[2017-07-24] MEDS: PRENATAL VITAMINS W/ FOLIC ACID TABLET (FP) PO SCH (10:48)
--- NOTE | 2017-07-24 11:47 | HP ---
Psychiatrist Admission - Data Date of interview: 07/24/17 Admission source: [facility] Identifying data: This is the first 5N inpatient rehabilitation admission for this 46 year old single AA male father of 5, supported on PA, residing in the [place] with his g/f. Medical History: denies Psychiatric History: patient denies history of psychiaric treatment. Physical/Sexual Abuse/Trauma History: patient denies history of sexual, physical and verbal abuse. Additional Comment: Patient reports he just released from retirement (6 months). Vital Signs: Vital Signs - 24 hr 07/24/17 07/24/17 07/24/17 00:30 03:30 07:20 Temperature 98.1 F Pulse Rate 78 Respiratory 18 18 18 Rate Blood Pressure 130/84 Allergies/Adverse Reactions: Allergies Allergy/AdvReac Type Severity Reaction Status Date / Time No Known Allergies Allergy Verified 07/21/17 14:29 Date of last physical exam: 07/21/17 Concur with the findings of this exam: Yes - Substance Abuse/Tx History Hx Alcohol Use: Yes Hx Substance Use: Yes Substance Use Type: Alcohol (daily 12 oz beers, 1 pint of vodka, last use 01/30) , Cocaine (daily $300 last use01/30) Mental Status Exam - Mental Status Exam Alert and Oriented to: Time, Place, Person Cognitive Function: Good Patient Appearance: Well Groomed Mood: Hopeful Affect: Appropriate, Mood Congruent Patient Behavior: Appropriate, Cooperative Speech Pattern: Clear, Appropriate Voice Loudness: Normal Thought Process: Intact, Goal Oriented Thought Disorder: Not Present Hallucinations: Denies Suicidal Ideation: Denies Homicidal Ideation: Denies Insight/Judgement: Fair Sleep: Fair Appetite: Fair Muscle strength/Tone: Normal Psychiatric Findings - Problem List ([place] 1, 2,3) (1) Cocaine dependence Current Visit: Yes Status: Acute (2) Alcohol dependence Current Visit: Yes Status: Acute (3) Nicotine dependence Current Visit: No Status: Chronic Qualifiers: Nicotine product type: cigarettes Substance use status: uncomplicated Qualified Code(s): F17.210 - Nicotine dependence, cigarettes, uncomplicated - Initial Treatment Plan Initial Treatment Plan: will monitor progress as needed.
[2017-07-24] MEDS: COLLOIDAL OATMEAL 1 BAR EACH TP PRN (13:52)
[2017-07-24] MEDS: THIAMINE HCL 100 MG TABLET (FP) PO SCH (22:07)
[2017-07-25] MEDS: PRENATAL VITAMINS W/ FOLIC ACID TABLET (FP) PO SCH (10:13)
[2017-07-25] MEDS: INSULIN SLIDING SCALE (NOVOLOG) 1 VIAL SQ SCH (17:03)
[2017-07-25] MEDS: metFORMIN HCL 500 MG TABLET (FP) PO SCH (17:40)
[2017-07-25] MEDS: THIAMINE HCL 100 MG TABLET (FP) PO SCH (21:49)
[2017-07-26] MEDS: metFORMIN HCL 500 MG TABLET (FP) PO SCH ×2 (06:42→17:06)
[2017-07-26] MEDS: INSULIN SLIDING SCALE (NOVOLOG) 1 VIAL SQ SCH ×2 (06:42→17:08)
[2017-07-26] MEDS ORDERED: INSULIN (NOVOLOG) ASPART 100 UNITS/ML 10ML VIAL ONE ×2 (07:22→17:21)
[2017-07-26] MEDS: PRENATAL VITAMINS W/ FOLIC ACID TABLET (FP) PO SCH (10:02)
[2017-07-26] MEDS: THIAMINE HCL 100 MG TABLET (FP) PO SCH (22:11)
[2017-07-27] MEDS ORDERED: INSULIN (NOVOLOG) ASPART 100 UNITS/ML 10ML VIAL ONE ×2 (06:54→17:09)
[2017-07-27] MEDS: HYDROCORTISONE 0.5% TOPICAL OINTMENT TUBE TP PRN (06:54)
[2017-07-27] MEDS: INSULIN SLIDING SCALE (NOVOLOG) 1 VIAL SQ SCH ×2 (06:55→16:55)
[2017-07-27] MEDS: metFORMIN HCL 500 MG TABLET (FP) PO SCH ×2 (06:55→16:53)
[2017-07-27] MEDS: PRENATAL VITAMINS W/ FOLIC ACID TABLET (FP) PO SCH (10:41)
[2017-07-27] MEDS: THIAMINE HCL 100 MG TABLET (FP) PO SCH (21:49)
[2017-07-28] MEDS: metFORMIN HCL 500 MG TABLET (FP) PO SCH ×2 (07:10→17:09)
[2017-07-28] MEDS ORDERED: INSULIN (NOVOLOG) ASPART 100 UNITS/ML 10ML VIAL ONE ×2 (07:24→17:16)
[2017-07-28] MEDS: INSULIN SLIDING SCALE (NOVOLOG) 1 VIAL SQ SCH ×2 (07:29→17:10)
[2017-07-28] MEDS: PRENATAL VITAMINS W/ FOLIC ACID TABLET (FP) PO SCH (10:32)
[2017-07-28] MEDS: THIAMINE HCL 100 MG TABLET (FP) PO SCH (23:25)
[2017-07-29] MEDS: INSULIN SLIDING SCALE (NOVOLOG) 1 VIAL SQ SCH ×2 (07:39→16:47)
[2017-07-29] MEDS ORDERED: INSULIN (NOVOLOG) ASPART 100 UNITS/ML 10ML VIAL ONE ×2 (07:39→16:56)
[2017-07-29] MEDS: metFORMIN HCL 500 MG TABLET (FP) PO SCH ×2 (07:40→16:45)
[2017-07-29] MEDS: PRENATAL VITAMINS W/ FOLIC ACID TABLET (FP) PO SCH (09:24)
[2017-07-29] MEDS: THIAMINE HCL 100 MG TABLET (FP) PO SCH (22:03)
[2017-07-30] MEDS: metFORMIN HCL 500 MG TABLET (FP) PO SCH ×2 (06:38→16:52)
[2017-07-30] MEDS: INSULIN SLIDING SCALE (NOVOLOG) 1 VIAL SQ SCH ×2 (06:39→16:53)
[2017-07-30] MEDS: PRENATAL VITAMINS W/ FOLIC ACID TABLET (FP) PO SCH (09:11)
[2017-07-30] MEDS ORDERED: INSULIN (NOVOLOG) ASPART 100 UNITS/ML 10ML VIAL ONE (17:13)
[2017-07-30] MEDS: THIAMINE HCL 100 MG TABLET (FP) PO SCH (21:39)
[2017-07-31] MEDS: metFORMIN HCL 500 MG TABLET (FP) PO SCH ×2 (06:55→16:40)
[2017-07-31] MEDS ORDERED: INSULIN (NOVOLOG) ASPART 100 UNITS/ML 10ML VIAL ONE ×2 (07:09→19:40)
[2017-07-31] MEDS: INSULIN SLIDING SCALE (NOVOLOG) 1 VIAL SQ SCH ×2 (07:18→16:42)
[2017-07-31] MEDS: PRENATAL VITAMINS W/ FOLIC ACID TABLET (FP) PO SCH (10:00)
[2017-07-31] MEDS: THIAMINE HCL 100 MG TABLET (FP) PO SCH (21:25)
[2017-08-01] MEDS: metFORMIN HCL 500 MG TABLET (FP) PO SCH ×2 (06:48→17:19)
[2017-08-01] MEDS: INSULIN SLIDING SCALE (NOVOLOG) 1 VIAL SQ SCH ×2 (07:16→17:19)
[2017-08-01] MEDS ORDERED: INSULIN (NOVOLOG) ASPART 100 UNITS/ML 10ML VIAL ONE ×2 (07:18→22:33)
[2017-08-01] MEDS: PRENATAL VITAMINS W/ FOLIC ACID TABLET (FP) PO SCH (10:28)
[2017-08-01] MEDS: THIAMINE HCL 100 MG TABLET (FP) PO SCH (23:46)
[2017-08-02] MEDS: metFORMIN HCL 500 MG TABLET (FP) PO SCH ×2 (06:15→16:48)
[2017-08-02] MEDS: INSULIN SLIDING SCALE (NOVOLOG) 1 VIAL SQ SCH ×2 (06:41→17:27)
[2017-08-02] MEDS: PRENATAL VITAMINS W/ FOLIC ACID TABLET (FP) PO SCH (10:02)
[2017-08-02] MEDS ORDERED: INSULIN (NOVOLOG) ASPART 100 UNITS/ML 10ML VIAL ONE ×2 (16:47→17:29)
[2017-08-02] MEDS: THIAMINE HCL 100 MG TABLET (FP) PO SCH (22:01)
[2017-08-03] MEDS: INSULIN SLIDING SCALE (NOVOLOG) 1 VIAL SQ SCH ×2 (07:02→16:36)
[2017-08-03] MEDS: metFORMIN HCL 500 MG TABLET (FP) PO SCH ×2 (07:04→16:33)
[2017-08-03] MEDS: PRENATAL VITAMINS W/ FOLIC ACID TABLET (FP) PO SCH (11:11)
[2017-08-03] MEDS ORDERED: INSULIN (NOVOLOG) ASPART 100 UNITS/ML 10ML VIAL ONE (16:35)
[2017-08-03] MEDS: THIAMINE HCL 100 MG TABLET (FP) PO SCH (21:43)
[2017-08-04] MEDS: INSULIN SLIDING SCALE (NOVOLOG) 1 VIAL SQ SCH ×2 (06:39→16:40)
[2017-08-04] MEDS: metFORMIN HCL 500 MG TABLET (FP) PO SCH ×2 (06:40→16:38)
[2017-08-04] MEDS ORDERED: INSULIN (NOVOLOG) ASPART 100 UNITS/ML 10ML VIAL ONE ×2 (06:56→16:39)
[2017-08-04] MEDS: PRENATAL VITAMINS W/ FOLIC ACID TABLET (FP) PO SCH (10:34)
[2017-08-04] MEDS: THIAMINE HCL 100 MG TABLET (FP) PO SCH (21:50)
[2017-08-05] MEDS: metFORMIN HCL 500 MG TABLET (FP) PO SCH ×2 (06:55→16:41)
[2017-08-05] MEDS: INSULIN SLIDING SCALE (NOVOLOG) 1 VIAL SQ SCH ×2 (06:56→16:41)
[2017-08-05] MEDS: PRENATAL VITAMINS W/ FOLIC ACID TABLET (FP) PO SCH (10:45)
[2017-08-05] MEDS ORDERED: INSULIN (NOVOLOG) ASPART 100 UNITS/ML 10ML VIAL ONE (16:55)
[2017-08-05] MEDS: COLLOIDAL OATMEAL 1 BAR EACH TP PRN (21:37)
[2017-08-05] MEDS: THIAMINE HCL 100 MG TABLET (FP) PO SCH (21:37)
[2017-08-06] MEDS: metFORMIN HCL 500 MG TABLET (FP) PO SCH ×2 (06:37→16:38)
[2017-08-06] MEDS: INSULIN SLIDING SCALE (NOVOLOG) 1 VIAL SQ SCH ×2 (07:16→16:38)
[2017-08-06] MEDS: PRENATAL VITAMINS W/ FOLIC ACID TABLET (FP) PO SCH (10:10)
[2017-08-06] MEDS ORDERED: INSULIN (NOVOLOG) ASPART 100 UNITS/ML 10ML VIAL ONE (17:07)
[2017-08-06] MEDS: THIAMINE HCL 100 MG TABLET (FP) PO SCH (21:19)
[2017-08-07] MEDS: metFORMIN HCL 500 MG TABLET (FP) PO SCH ×2 (06:05→16:45)
[2017-08-07] MEDS: INSULIN SLIDING SCALE (NOVOLOG) 1 VIAL SQ SCH ×2 (06:06→16:45)
[2017-08-07] MEDS: PRENATAL VITAMINS W/ FOLIC ACID TABLET (FP) PO SCH (10:37)
[2017-08-07] MEDS: THIAMINE HCL 100 MG TABLET (FP) PO SCH (22:02)
[2017-08-08] MEDS: metFORMIN HCL 500 MG TABLET (FP) PO SCH ×2 (06:52→16:35)
[2017-08-08] MEDS ORDERED: INSULIN (NOVOLOG) ASPART 100 UNITS/ML 10ML VIAL ONE (07:42)
[2017-08-08] MEDS: INSULIN SLIDING SCALE (NOVOLOG) 1 VIAL SQ SCH ×2 (07:43→16:37)
[2017-08-08] MEDS: PRENATAL VITAMINS W/ FOLIC ACID TABLET (FP) PO SCH (10:22)
[2017-08-08] MEDS: THIAMINE HCL 100 MG TABLET (FP) PO SCH (22:00)
[2017-08-09] MEDS: metFORMIN HCL 500 MG TABLET (FP) PO SCH ×2 (06:50→16:57)
[2017-08-09] MEDS ORDERED: INSULIN (NOVOLOG) ASPART 100 UNITS/ML 10ML VIAL ONE ×2 (06:53→17:13)
[2017-08-09] MEDS: INSULIN SLIDING SCALE (NOVOLOG) 1 VIAL SQ SCH ×2 (06:54→16:58)
[2017-08-09] MEDS: PRENATAL VITAMINS W/ FOLIC ACID TABLET (FP) PO SCH (11:43)
[2017-08-09] MEDS: THIAMINE HCL 100 MG TABLET (FP) PO SCH (21:50)
[2017-08-10] MEDS: INSULIN SLIDING SCALE (NOVOLOG) 1 VIAL SQ SCH ×2 (06:29→16:41)
[2017-08-10] MEDS: metFORMIN HCL 500 MG TABLET (FP) PO SCH ×2 (06:29→16:38)
[2017-08-10] MEDS ORDERED: INSULIN (NOVOLOG) ASPART 100 UNITS/ML 10ML VIAL ONE ×2 (06:33→16:39)
[2017-08-10] MEDS: PRENATAL VITAMINS W/ FOLIC ACID TABLET (FP) PO SCH (11:00)
[2017-08-10] MEDS: THIAMINE HCL 100 MG TABLET (FP) PO SCH (22:19)
[2017-08-11] MEDS ORDERED: INSULIN (NOVOLOG) ASPART 100 UNITS/ML 10ML VIAL ONE ×2 (06:59→17:20)
[2017-08-11] MEDS: metFORMIN HCL 500 MG TABLET (FP) PO SCH ×2 (07:01→16:44)
[2017-08-11] MEDS: INSULIN SLIDING SCALE (NOVOLOG) 1 VIAL SQ SCH ×2 (07:01→16:44)
[2017-08-11] MEDS: PRENATAL VITAMINS W/ FOLIC ACID TABLET (FP) PO SCH (10:31)
[2017-08-11] MEDS: THIAMINE HCL 100 MG TABLET (FP) PO SCH (21:24)
[2017-08-12] MEDS: metFORMIN HCL 500 MG TABLET (FP) PO SCH ×2 (06:38→16:33)
[2017-08-12] MEDS: INSULIN SLIDING SCALE (NOVOLOG) 1 VIAL SQ SCH ×2 (06:40→16:36)
[2017-08-12] MEDS ORDERED: INSULIN (NOVOLOG) ASPART 100 UNITS/ML 10ML VIAL ONE (07:00)
[2017-08-12] MEDS: PRENATAL VITAMINS W/ FOLIC ACID TABLET (FP) PO SCH (10:18)
[2017-08-12] MEDS: THIAMINE HCL 100 MG TABLET (FP) PO SCH (21:24)
[2017-08-13] MEDS: metFORMIN HCL 500 MG TABLET (FP) PO SCH ×2 (05:59→16:33)
[2017-08-13] MEDS ORDERED: INSULIN (NOVOLOG) ASPART 100 UNITS/ML 10ML VIAL ONE ×2 (06:55→17:44)
[2017-08-13] MEDS: INSULIN SLIDING SCALE (NOVOLOG) 1 VIAL SQ SCH ×2 (07:21→16:35)
[2017-08-13] MEDS: PRENATAL VITAMINS W/ FOLIC ACID TABLET (FP) PO SCH (10:40)
[2017-08-13] MEDS: THIAMINE HCL 100 MG TABLET (FP) PO SCH (21:08)
[2017-08-14] MEDS: metFORMIN HCL 500 MG TABLET (FP) PO SCH ×2 (06:28→16:41)
[2017-08-14] MEDS ORDERED: INSULIN (NOVOLOG) ASPART 100 UNITS/ML 10ML VIAL ONE ×2 (06:32→22:01)
[2017-08-14] MEDS: INSULIN SLIDING SCALE (NOVOLOG) 1 VIAL SQ SCH ×2 (07:11→16:42)
[2017-08-14] MEDS: PRENATAL VITAMINS W/ FOLIC ACID TABLET (FP) PO SCH (11:03)
[2017-08-14] MEDS: THIAMINE HCL 100 MG TABLET (FP) PO SCH (21:32)
[2017-08-15] MEDS: metFORMIN HCL 500 MG TABLET (FP) PO SCH ×2 (06:44→16:43)
[2017-08-15] MEDS ORDERED: INSULIN (NOVOLOG) ASPART 100 UNITS/ML 10ML VIAL ONE ×2 (06:46→17:19)
[2017-08-15] MEDS: INSULIN SLIDING SCALE (NOVOLOG) 1 VIAL SQ SCH ×2 (06:48→16:41)
[2017-08-15] MEDS: PRENATAL VITAMINS W/ FOLIC ACID TABLET (FP) PO SCH (10:21)
[2017-08-15] MEDS: THIAMINE HCL 100 MG TABLET (FP) PO SCH (21:29)
[2017-08-16] MEDS: INSULIN SLIDING SCALE (NOVOLOG) 1 VIAL SQ SCH ×2 (06:51→16:50)
[2017-08-16] MEDS: metFORMIN HCL 500 MG TABLET (FP) PO SCH ×2 (06:51→16:51)
[2017-08-16] MEDS ORDERED: INSULIN (NOVOLOG) ASPART 100 UNITS/ML 10ML VIAL ONE ×2 (06:54→17:20)
[2017-08-16] MEDS: PRENATAL VITAMINS W/ FOLIC ACID TABLET (FP) PO SCH (09:41)
[2017-08-16] MEDS: THIAMINE HCL 100 MG TABLET (FP) PO SCH (21:29)
[2017-08-17 06:23] VITALS: BP 125/87; PULSE 77; TEMP 98.4
[2017-08-17] MEDS: metFORMIN HCL 500 MG TABLET (FP) PO SCH (06:41)
[2017-08-17] MEDS: INSULIN SLIDING SCALE (NOVOLOG) 1 VIAL SQ SCH (06:41)
[2017-08-17] MEDS ORDERED: INSULIN (NOVOLOG) ASPART 100 UNITS/ML 10ML VIAL ONE (06:56)
--- NOTE | 2017-08-17 09:35 | PN ---
Psychiatric Progress Note Vital Signs: Vital Signs Period Temp Pulse Resp BP Sys/Nicolas Pulse Ox Last 24 Hr 98.4 F 77 16-18 125/87 Date of Session: 08/17/17 Chief Complaint:: discharge visit HPI: Patient has addressed alcohol, cocaine and nicotine dependence. ROS: DM medically managed. Current Medications: Active Medications Generic Name Dose Route Start Last Admin Trade Name Freq PRN Reason Stop Dose Admin Acetaminophen 650 mg 07/21/17 14:43 Tylenol - PO Q4H PRN PAIN Al Hydroxide/Mg Hydroxide 30 ml 07/21/17 14:43 Mylanta Oral Suspension - PO Q6H PRN DYSPEPSIA Colloidal Oatmeal 1 applic 07/24/17 12:36 08/05/17 21:37 Aveeno Soap - TP 1 applic DAILY PRN Administration HYGEINE Eucalyptus/Menthol/Phenol/Sorbitol 1 each 07/21/17 14:43 Cepastat Lozenge - MM Q4H PRN SORE THROAT Guaifenesin 10 ml 07/21/17 14:43 Robitussin Dm - PO Q6H PRN COUGH Hydrocortisone 1 applic 07/21/17 14:49 07/27/17 06:54 Hytone 0.5% Ointment - TP 1 applic BID PRN Administration FOR ITCHING Hydroxyzine Pamoate 50 mg 07/21/17 14:43 Vistaril - PO Q4H PRN AGITATION Ibuprofen 400 mg 07/21/17 14:43 Motrin - PO Q6H PRN SEVERE PAIN Insulin Aspart 1 vial 07/25/17 16:30 08/17/17 06:41 Novolog Vial Sliding Scale - SQ 6 units BIDAC AQUILES Administration Protocol Loperamide HCl 4 mg 07/21/17 14:43 Imodium - PO Q6H PRN DIARRHEA Magnesium Citrate 300 ml 07/21/17 14:43 Citroma - PO Q48H PRN CONSTIPATION Magnesium Hydroxide 30 ml 07/21/17 14:43 Milk Of Magnesia - PO DAILY PRN CONSTIPATION Metformin HCl 1,000 mg 07/30/17 07:00 08/17/17 06:41 Glucophage - PO 1,000 mg BID@0700,1630 AQUILES Administration Multivit/Folic Acid/Iron 1 tab 07/22/17 10:00 08/16/17 09:41 Vitamins (Sjr) - PO Not Given DAILY AQUILES Pseudoephedrine/Triprolidine 1 combo 07/21/17 14:43 Actifed - PO TID PRN NASAL CONGESTION Thiamine HCl 100 mg 07/21/17 22:00 08/16/17 21:29 Vitamin B1 - PO Not Given HS AQUILES Current Side Effect: No Lab tests ordered: No Lab tests reviewed: Yes Provider note:: Patient has completed today his treatment and met his goals, [place] [address]. Patient gained insights into his addiction and motivated to continue minatian sobriety. Patient was encouraged to utilize all supports avilable to prevent relapses. He is stable for discharge today. Total face to face time:: 15 Mental Status Exam - Mental Status Exam Alert and Oriented to: Time, Place, Person Cognitive Function: Good Patient Appearance: Well Groomed Mood: Hopeful Affect: Appropriate, Mood Congruent Patient Behavior: Appropriate, Cooperative Speech Pattern: Clear, Appropriate Voice Loudness: Normal Thought Process: Intact, Goal Oriented Thought Disorder: Not Present Hallucinations: Denies Suicidal Ideation: Denies Homicidal Ideation: Denies Insight/Judgement: Good Sleep: Well Appetite: Good Muscle strength/Tone: Normal Gait/Station: Normal Psychiatric Treatment Plan - Problem List (1) Cocaine dependence Current Visit: Yes (2) Alcohol dependence Current Visit: Yes (3) Nicotine dependence Current Visit: No Qualifiers: Nicotine product type: cigarettes Substance use status: uncomplicated Qualified Code(s): F17.210 - Nicotine dependence, cigarettes, uncomplicated
== END 2017-08-17 08:30 | disposition home or self-care (01) | DRG 772 ==
LOC: YASAS 12:39 → Y5N 14:41
PROVIDERS: ADMIT Psychiatry & Neurology Psychiatry; ATTEND Psychiatry & Neurology Psychiatry
PROC: HZ42ZZZ Group Counseling for Substance Abuse Treatment, Cognitive-Behavioral (ICD-10-PCS; principal; 2017-07-21)
DX: F10.20 Alcohol dependence, uncomplicated (principal); F14.20 Cocaine dependence, uncomplicated; F17.210 Nicotine dependence, cigarettes, uncomplicated; R21 Rash and other nonspecific skin eruption; E66.9 Obesity, unspecified; Z68.35 Body mass index [BMI] 35.0-35.9, adult; Z87.438 Personal history of other diseases of male genital organs
CPT/HCPCS: 36415; 71046-TC; 80053; 81003; 82962; 85027; 86593; 93005; 93010